=== PATIENT | female | born 1960 | race Caucasian/White ===

== ENCOUNTER 2024-02-26 10:41 | Emergency (ER) | payer BC, SELFPAY ==
[2024-02-26 10:44] VITALS: BP 142/86; PULSE 75; RESP 16; TEMP 37; O2SAT 96; BMI 44.1
--- NOTE | 2024-02-26 10:59 | ED.GENADULT ---
HPI - General Adult General Date Seen: 02/26/24 Chief complaint: Extremity Pain/Injury, Lower Stated complaint: Poss blood clot in left foot Time Seen by Provider: 02/26/24 10:58 History of Present Illness HPI narrative: Pleasant 63-year-old female with history of varicose veins (previous laser therapy, sclerotherapy) also some chronic lower extremity edema for which she wears compression stockings, who presents to the ER today with a 3-4 day history of atraumatic left ankle and foot pain. He she does do a lot of ambulation and is on her feet a lot at work (works at the local [employer]). She also went to the [employer] on Thursday, 4 days ago and a lot of walking there, but not as much as she normally would do at work in a given day. On Thursday she began to have pain in her left ankle. It is mostly on the medial side of the ankle and medial hindfoot but a little bit on the lateral side. No pain in her midfoot or forefoot. The pain radiates a little bit up the anterior lower leg just proximal to the ankle. No pain in the calf. She notes that she has prominent tiny spider veins that are a little bit more red than normal on the medial side of her foot. No bruising. No other redness or warmth. She has not had any fevers or chills. No pain in the calf, knees, thigh. No other new swelling in the leg. No chest pain. No trouble breathing. No history of gout. No history of septic arthritis. No diabetes or immunosuppression. Related Data Home Medications ?Medication ?Instructions ?Recorded ?Confirmed levothyroxine 125 mcg tablet 125 mcg PO DAILY 11/12/22 02/26/24 (Synthroid) torsemide 10 mg tablet 10 mg PO DAILY 11/12/22 02/26/24 valacyclovir 1 gram tablet 2,000 mg PO Q12H PRN 11/12/22 02/26/24 (Valtrex) Previous Rx's ?Medication ?Instructions ?Recorded ibuprofen 800 mg tablet 800 mg PO Q8H #20 tabs 02/26/24 Allergies Allergy/AdvReac Type Severity Reaction Status Date / Time latex Allergy skin Verified 02/26/24 10:51 breakout [facility] Medical History (Updated 02/26/24 @ 13:41 by Berhane Medina MD) Major depressive disorder ?F32.9 - Major depressive disorder, single episode, unspecified (ICD-10) Unspecified hypothyroidism ?E03.9 - Hypothyroidism, unspecified (ICD-10) Surgical History (Updated 11/12/22 @ 07:19 by Tala Suarez RN) Hx of vein stripping ?Z98.890 - Other specified postprocedural states (ICD-10) History of partial hysterectomy ?Z90.711 - Acquired absence of uterus with remaining cervical stump (ICD-10) Social History Smoking Status: Former smoker What tobacco products do you use: cigarettes Smoking quit date/years: >15 years ago Do you use any of these nicotine containing products: None How often do you have a drink containing alcohol: 2-4 times a month Alcohol type: wine How many standard drinks containing alcohol do you have on a typical day: 1 or 2 How often do you have six or more drinks on one occasion: Never AUDIT-C Alcohol total score: 2 Non-prescribed substance use: denies use Caffeine: Yes (3 cups coffee per day) Are you using contraception or practicing any form of control: No Exam Narrative: Exam Narrative: Constitutional: Appears well-developed and well-nourished. Alert. Conversant. Non toxic. HENT: Head: Atraumatic. Nose: Nose normal. Mouth/Throat: Oral mucosa is clear and moist. no trismus. Eyes: Conjunctivae normal. EOM normal. Pupils equal, round, and reactive to light. No scleral icterus. Neck: Normal range of motion. Neck supple. No tracheal deviation present. Cardiovascular: Normal rate, regular rhythm. No gallop. No friction rub. No murmur heard. Symmetric radial artery pulses Pulmonary/Chest: Effort normal. No stridor. No respiratory distress. No wheezes. No rales. No rhonchi . Musculoskeletal: RUE: Normal range of motion. No tenderness. No deformity LUE: Normal range of motion. No tenderness. No deformity RLE: Normal range of motion. Trace edema which the patient says is baseline for her. No tenderness. No deformity LLE: Normal range of motion in her hip, knee. She has full plantar flexion and dorsiflexion of the ankle but has pain in the left ankle with plan to her flexion and also with dorsiflexion beyond 90?.. Trace edema which is at baseline. She is mildly tender on the medial and the hindfoot and medial malleolus. There is a prominent slightly purplish red erythema there that appears to be a tiny little spider varicose veins. No ecchymosis. No confluent erythema. There is no warmth on the medial or lateral or anterior ankle. No bony crepitus. No palpable effusion. No swelling in the ankle. Lymph: No ascending lymphangitis Neurological: Alert and oriented to person, place, and time. Normal strength. CN II-VII intact. No sensory deficit. GCS eye subscore is 4. GCS verbal subscore is 5. GCS motor subscore is 6. Normal coordination Skin: Skin is warm and dry. No rash noted. No pallor. Normal capillary refill. Psychiatric: Normal mood. Normal affect. Const: Vital Signs, click to edit/add: Vital Signs - 24 hr 02/26/24 10:44 Temperature 98.6 F Pulse Rate [Pulse Oximeter] 75 Respiratory Rate 16 Blood Pressure [Ri ght Upper Arm] 142/86 H Pulse Oximetry 96 Oxygen Delivery Me thod Room Air Course Vital Signs Vital signs: Initial Vital Signs Temperature 98.6 F 02/26/24 10:44 Temperature Source Temporal Artery Scan 02/26/24 10:44 Pulse Rate 75 02/26/24 10:44 Respiratory Rate 16 02/26/24 10:44 Blood Pressure 142/86 H 02/26/24 10:44 Blood Pressure Mean 104 02/26/24 10:44 Blood Pressure Position Sitting 02/26/24 10:44 Pulse Oximetry 96 02/26/24 10:44 Oxygen Delivery Method Room Air 02/26/24 10:44 Vital Signs Temperature 98.6 F 02/26/24 10:44 Pulse Rate 75 02/26/24 10:44 Respiratory Rate 16 02/26/24 10:44 Blood Pressure 142/86 H 02/26/24 10:44 Pulse Oximetry 96 02/26/24 10:44 Oxygen Delivery Method Room Air 02/26/24 10:44 Temperature 98.6 F 02/26/24 10:44 Pulse Rate 75 02/26/24 10:44 Respiratory Rate 16 02/26/24 10:44 Blood Pressure 142/86 H 02/26/24 10:44 Pulse Oximetry 96 02/26/24 10:44 Oxygen Delivery Method Room Air 02/26/24 10:44 Medical Decision Making MDM Narrative Medical decision making narrative: Pleasant 63-year-old female presenting to the ER today with 3-4 day history of atraumatic pain and a little bit of swelling involving her left ankle and the medial aspect of her hindfoot. She has a history of varicose veins and is concerned about possible blood clots. She does not really have any swelling or edema in her calf. No palpable cords. No swelling or symptoms affecting her proximal leg. Clinical pretest likelihood for DVT is low but not 0. Ultrasound of her leg is obtained is negative for DVT. She does have intact distal pulses and no signs of acute limb ischemia. With the subtle erythema , consider possible early or mild cellulitis however there is no warmth, no fever. Erythema really is just exaggeration of tiny capillary varicosities on the skin. X-rays are obtained and are negative for any acute fracture but do show evidence for tibiotalar arthritis which could be flaring. Likelihood for intra-articular pathology such as gout or septic arthritis is very low and in discussion with the patient I think it is reasonable to hold off on attempted arthrocentesis right now Will make the patient nonweightbearing on crutches, recommend anti-inflammatories (ibuprofen 800 t.i.d.). Take ibuprofen with food to avoid GI upset. Follow-up on Thursday with Ortho Clinic or PCP for recheck and was completely improved. Return to the ER right away if worsening redness or swelling, worsening pain, fever, or if any other concerns. patient is agreeable to the plan of care for watchful waiting for now Imaging Data XR left ankle: Attestation: I have reviewed the pertinent imaging results. Radiologist's impression: Impression: No acute osseous abnormality identified. Mild tibiotalar osteoarthritis. US left leg: Attestation: I have reviewed the pertinent imaging results. Radiologist's impression: IMPRESSION: Normal left lower extremity venous ultrasound, no sign of deep venous thrombosis. Discharge Plan Discharge Clinical Impression: Acute left ankle pain Patient Disposition: Home, Self-Care Condition: Stable Instructions: Arthralgia (ED) Additional Instructions: As we discussed so for your workup looks reassuring. No sign of blood clots. Your ankle x-ray shows nothing broken but does show a little bit of arthritis in your ankle joint. I suspect that your pain and redness and swelling or probably due to irritation of your ankle joint. For now we can treat this by rest, keeping weight off the ankle in using crutches when you are walking around. Use the nonsteroidal anti-inflammatory 3 times daily to help reduce pain and swelling. If you are not completely improved by Thursday, please follow-up with the [facility] (or with your regular doctor) for a recheck. To make an ER follow-up appointment with the Orthopedic Clinic call [phone]. If you have any worsening symptoms over the weekend such as worsening pain, increasing swelling, redness or fever, please come back to the ER right away to be rechecked. Prescriptions: New ibuprofen 800 mg tablet 800 mg PO Q8H Qty: 20 0RF No Action levothyroxine [Synthroid] 125 mcg tablet 125 mcg PO DAILY torsemide 10 mg tablet 10 mg PO DAILY valacyclovir [Valtrex] 1 gram tablet 2,000 mg PO Q12H PRN Rx Instructions: for 2 doses for cold sores Follow Up/Referrals: Mirella Jean MD [Primary Care Provider] - Stand Alone Forms: [employer] Info Instructions
--- NOTE | 2024-02-26 11:16 | CRLHL7_ITS ---
For Patients: As a result of the Century Cures Act, medical imaging exams and procedure reports are released immediately into your electronic medical record. You may view this report before your referring provider. If you have questions, please contact your health care provider. INDICATION: Atraumatic left ankle and foot pain. TECHNIQUE: Ultrasound venous duplex lower left extremity. Compression venous exam was performed using duncan-scale, color Doppler, and spectral Doppler analysis. COMPARISON: None available. FINDINGS: Deep veins: Sonographic imaging demonstrates the left common femoral, deep femoral, superficial femoral, popliteal, posterior tibial, peroneal and the contralateral right common femoral veins to be fully compressible with normal color Doppler blood flow. Superficial veins: Visualized portions of the greater saphenous vein are fully compressible. IMPRESSION: Normal left lower extremity venous ultrasound, no sign of deep venous thrombosis. Dictated by Kay Bustamante MD @ 02/26/2024 12:40:41 PM (Electronically Signed)
--- NOTE | 2024-02-26 11:16 | CRLHL7_ITS ---
For Patients: As a result of the Century Cures Act, medical imaging exams and procedure reports are released immediately into your electronic medical record. You may view this report before your referring provider. If you have questions, please contact your health care provider. Indication: Atraumatic ankle pain. Technique: Three view(s) of the left ankle. Comparison: None available. Findings: Alignment is anatomic. No acute fracture is identified. Mild tibiotalar marginal osteophytes. Posterior and plantar calcaneal enthesophytes. Generalized soft tissue swelling. Impression: No acute osseous abnormality identified. Mild tibiotalar osteoarthritis. Dictated by Kay Bustamante MD @ 02/26/2024 11:51:01 AM (Electronically Signed)
--- OUTSIDE RECORDS SUMMARY | 2024-02-26 11:37 | XMS_ITS | Clinical Summary ---
Author Organization [facility] Address [employer], [place] [address] Care Team Providers Care Harness Worker Name Role Phone Mirella Jean MD Primary Care Provide r Allergies No known active allergies Medications Medication Sig Dispensed Refills Start Date End Date Status Graduated Compression StockingsIndicatio ns:Bilateral leg edema For personal use. Length: calf Strength: 16-20 mmHg Circumference in cm: measure at pharmacy 1 Packet 06/06/2022 Active Graduated Compression StockingsIndicatio ns:Varicose veins of both lower extremities, unspecified whether complicated For personal use. Length: calf Strength: 20-30 mmHg 2 Packet 1 07/22/2022 Active valACYclovir (VALTREX) 1 gram tabletIndications: Recurrent cold sores TAKE 2 TABLETS(2 GRAMS) BY MOUTH EVERY 12 HOURS FOR 2 DOSES FOR COLD SORES 20 Tablet 2 01/26/2024 Active levothyroxine (SYNTHROID) 125 mcg tabletIndications: Hypothyroidism (acquired) Take 1 Tablet (125 mcg) by mouth before breakfast. 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 Unspecified hypothyroidism 11/27/2006 Encounters Date Type Department Care Team Description 02/26/2024 Nurse Triage [facility] [address] [place] [address] Mirella Jean MD Ankle Pain/problem 02/15/2024 Telephone [facility] [address] [place] [address] Mirella Jean MD Abnormal Lab Results 02/03/2024 Orders Only [facility] Scanner 1 scan: (1-Ord) [facility], THERAPEUTIC LEFT L5-S1, L4-5 AND L3-4 FACET JOINT INJECTIONS, 02/03/2024 01/26/2024 3:05 PM CDT Office Visit [facility] [address] [place] [address] Mirella Jean MD Physical (63 yo Female/Not sleeping well, losing hair and weight gain Thyroid messed up ?/Would like something for sleep/Retaining fluid in legs) 01/26/2024 Travel 01/11/2024 Telephone [facility] [address] [place] [address] Mirella Jean MD ACC Order Request (MRI or XRay) 12/22/2023 Telephone [facility] [address] [place] [address] Mirella Jean MD Referral (spinal injection) 12/19/2023 Refill [facility] [address] [place] [address] Mirella Jean MD Refill Request (Levothyroxine) from Last 3 Months Immunizations Name Administration Dates Next Due COVID-19 vaccine (NitroPCR 30mcg/0.3mL) [place] 10/01/2020,09/04/2020 Hepatitis A (Adult) 07/18/2005, 5,11/03/2003,2002 Human Papilloma Virus Vaccine 01/21/2007, 007,07/22/2006 Influenza A (H1N1), Inactivated 07/11/2009 Influenza, IIV3 (Age 6-35 mos) 04/01/2010 Influenza, IIV4 04/09/2016,04/13/2014 Td (Age >=7 Years) 02/17/2006,04/29/1996 Tdap 03/06/2016 Zoster (Shingrix-RZV, recombinant) 01/26/2024 Family History Medical History Relation Name Comments Heart Disease Father valve replacem ent Diabetes Maternal Uncle Heart Disease Mother Hypertension Mother Diabetes Paternal Uncle Cancer-breast No Family History Relation Name Status Comments Father Maternal Uncle Mother Paternal Uncle Social History Tobacco Use Types Packs/Day Years Used Date Smoking Tobacco: Former Cigarettes Q uit: 06/29/1994 Smokeless Tobacco: Never Tobacco Cessation:Counseling Given: Yes Alcohol Use Standard Drinks/Week Comments Yes 1 (1 standard drink = 0.6 oz pur e alcohol) PHQ-2 Answer Date Recorded PHQ-2 TOTAL SCORE 0 01/26/2024 Social Connections Answer Date Recorded Frequency of Communication with Friends and Fami ly 0 01/26/2024 Financial Resource Strain Answer Date R ecorded Difficulty of Paying Living Expenses 3 01/26/2024 Difficulty of Paying Living Expenses Not on file 01/26/2024 Food Insecurity Answer Date Recorded Worried About Running Out of Food in the Last Ye ar 1 01/26/2024 Transportation Needs Answer Date Record ed Lack of Transportation (Medical) 1 01/26/2024 Housing Stability Answer Date Recorded Unable to Pay for Housing in the Last Year 1 01/26/2024 Sex and Gender Information Value Date Recorded Sex Assigned at Not on file Gender Identity Not on file Sexual Orientation Not on file Obstetrics History Last Filed Vital Signs Vital Sign Reading Time Taken Comments Blood Pressure 118/81 01/26/2024 3:29 PM CDT Pulse 85 01/26/2024 3:29 PM CDT Temperature 36.9 ??C (98.4 ??F) 12/08/2022 8:39 AM CD T Respiratory Rate - - Oxygen Saturation 97% 01/26/2024 3:29 PM CDT Inhaled Oxygen Concentration - - Weight 123.2 kg (271 lb 9.6 oz) 01/26/2024 3:29 PM CDT Height 162.6 cm (5' 4) 01/26/2024 3:29 PM CDT Body Mass Index 46.62 01/26/2024 3:29 PM CDT Plan of Treatment Upcoming Encounters Date Type Department Care Team (Late st Contact Info) Description 03/22/2024 8:00 AM CDT Orders Only [facility] [address] [place] [address] Lab, [place] Maintenance Due Date Last Done Comments HIV for age 15-65 10/11[birth year]1974 COVID-19 vaccine series (3 - 2022- season) 2023 10/01/2020, 09/04/2020 Influenza for age 50-64 02/28/2024 04/09/20 16, 04/13/2014, 07/11/2009 Zoster (shingles) series for age 50+ (2 of 2) 03/22/2024 01/26/2024 Mammogram for age 45-75 10/08/2024 10/09/19, 09/30/2022, 09/16/2022, Additional history exists BMI (ht and wt on same day) for age 18+ 01/25/2025 01/26/2024, 09/16/2022, 08/20/2021, Additional history exists Depression screening for age 12+ 01/25/2025 01/26/2024, 09/16/2022, 09/16/2022, Additional history exists Fecal testing sDNA-FIT (Cologuard) for age 45-75 10/07/2025 10/07/2022 Tetanus booster 03/06/2026 03/06/2016, 01/28, 04/29/1996 Lipids for age 45-75 01/25/2029 01/26/2024, 09/16/2022, 08/20/2021, Additional history exists Tdap Completed 03/06/2016 Fecal testing non-DNA (FIT,FOBT,iFOBT) for age 45-75 Discontinued 03/31/2018 Hepatitis C screening for age 18-79 Completed 05/08/2020 Pneumococcal series for age 6-64 Aged Out No longer eligible based on patient's age to complete this topic Procedures Procedure Name Priority Date/Time Associated Diagnosis Comments SCAN-OPERATIVE/PROC EDURE REPORT 02/03/2024 12:00 AM CDT LIPID PANEL Routine 01/26/2024 4:58 PM CDT Lipid screening TSH WITH REFLEX Routine 01/26/2024 4:58 PM CDT Hypothyroidism (acquired) BASIC METABOLIC PANEL Routine 01/26/2024 4:58 PM CDT Edema, peripheral XR MAMMO TREY BILAT SCREEN Routine 10/09/2023 4:21 PM CDT Visit for screening mammogram SDNA-FIT EXTERNAL (COLOGUARD) Routine 10/07/2022 5:30 AM CDT Screening for colon cancer ANTI HCV Routine 05/08/2020 11:15 AM [facility] Need for hepatitis C screening test OCCULT BLOOD IFOBT STOOL Routine 03/31/2018 12:30 PM CDT Screening for colon cancer from Last 3 Months or Most Recently Relevant to Health Maintenance Results * SCAN-OPERATIVE/PROCEDURE REPORT (02/03/2024 12:00 AM CDT) Scanner OTHER * TSH WITH REFLEX (01/26/2024 4:58 PM CDT) TSH 1.56 0.27 - 4.20 uIU/mL 01/27/2024 2:44 PM CDT [facility] Blood BLOOD SPECIMEN / Unknown Butterfly / Unknown 01/26/2024 4:58 PM CDT 01/26/2024 4:59 PM CDT Narrative [facility] - 01/27/2024 2:44 PM CDT In Adults, TSH values between 5.00 and 10.00 uIU/ml do not necessarily indicate the presence of Hypothyroidism. Correlation with clinical findings such as presence of goiter and/or Thyroperoxidase (TPO) Antibody may be helpful. For more information please refer to SAMEER 2004; 291: 228-238. Mirella Jean MD CHEMISTRY [facility] [address] [place] [address], * (ABNORMAL) LIPID PANEL (01/26/2024 4:58 PM CDT) CHOLESTEROL,TOTAL 288(H) 100 - 199 mg/dL 01/27/2024 2:44 PM CDT [facility] Comment: Cholesterol, Total Reference Ranges Desirable <200 mg/dL Borderline 200-239 mg/dL High >=240 mg/dL TRIGLYCERIDES 273(H) <150 mg/dL 01/27/2024 2:44 PM CDT [facility] HDL CHOLESTEROL 69 >40 mg/dL 2:44 PM CDT [facility] NON-HDL CHOLESTEROL 219(H) <145 mg/dl 01/27/2024 2:44 PM CDT [facility] CHOL/HDL RATIO 4.17 <4.50 01/27/2024 2:44 PM CDT [facility] LDL CHOLESTEROL 164(H) <=130 mg/dL 01/27/2024 2:44 PM CDT [facility] VLDL CHOLESTEROL 55(H) <=30 mg/dL 01/27/2024 2:44 PM CDT [facility] PROVIDER ORDERED STATUS RANDOM 01/27/2024 2:44 PM CDT [facility] Blood BLOOD SPECIMEN / Unknown Butterfly / Unknown 01/26/2024 4:58 PM CDT 01/26/2024 4:59 PM CDT Mirella Jean MD CHEMISTRY [facility] [address] [place] [address], * (ABNORMAL) BASIC METABOLIC PANEL (01/26/2024 4:58 PM CDT) SODIUM 138 136 - 145 mmol/L 01/27/2024 2:44 PM CDT [facility] POTASSIUM 3.8 3.5 - 5.1 mmol/L 01/27/2024 2:44 PM CDT [facility] CHLORIDE 100 98 - 107 mmol/L 01/27/2024 2:44 PM CDT [facility] CO2,TOTAL 25 22 - 29 mmol/L 01/27/2024 2:44 PM CDT [facility] ANION GAP 13 5 - 18 01/27/2024 2:44 PM CDT [facility] GLUCOSE 96 70 - 99 mg/dL 01/27/2024 2:44 PM CDT [facility] CALCIUM 9.6 8.8 - 10.2 mg/dL 01/27/2024 2:44 PM CDT [facility] BUN 23 8 - 23 mg/dL 01/27/2024 2:44 PM CDT [facility] CREATININE 1.21(H) 0.50 - 0.90 mg/dL 01/27/2024 2:44 PM CDT [facility] BUN/CREAT RATIO 19 10 - 20 2:44 PM CDT [facility] eGFR 50(L) >90 mL/min/1.7 3m2 01/27/2024 2:44 PM CDT [facility] Comment:As of 2021, eG FR is calculated by the CKD-EPI creatinine equation without race adjustment. ??eGFR can be influenced by muscle mass, exercise, and diet. ??The reported eGFR is an estimation only and is only applicable if the renal function is stable. Blood BLOOD SPECIMEN / Unknown Butterfly / Unknown 01/26/2024 4:58 PM CDT 01/26/2024 4:59 PM CDT Mirella Jean MD CHEMISTRY [facility] [address] [place] [address], * XR MAMMO TREY BILAT SCREEN (10/09/2023 4:21 PM CDT) Anatomical Region Laterality Modality BREASTS, Breast Left, Breast Right Bilateral Mammography Impressions 2023 1:19 PM CDT ??There is no radiographic evidence for malignancy. ??Recommend annual mammograms. MAMMOGRAM ASSESSMENT: ??ACR 2 Benign PATIENTS: You will also receive a letter with your examination results in an easy to read format. ??If you have questions about your results, please contact your referring provider. Narrative 2023 1:19 PM CDT For Patients: As a result of the Century Cures Act, medical imaging exams and procedure reports are released immediately into your electronic medical record. You may view this report before your referring provider. If you have questions, please contact your health care provider. XR MAMMO TREY BILAT SCREEN [[id number]] CLINICAL HISTORY: ??This is an asymptomatic 63 y.o. patient. INDICATION FOR EXAM: Mammogram Screening. TECHNIQUE: CC & MLO views were obtained. ??This study was evaluated with the assistance of Computer-Aided Detection. Breast Tomosynthesis was used in interpretation. COMPARISON FILMS: Yes 09/16/22 [facility] 08/20/21 [facility] FINDINGS: ??The breasts have scattered areas of fibroglandular density. ??No suspicious masses or microcalcifications. ??There are benign appearing mass(es). Mirella Jean MD MAMMO * SDNA-FIT EXTERNAL (COLOGUARD) (10/07/2022 5:30 AM CDT) NONINV COLON CA DNA+OCC BLD SCRN STL-IMP Negative Negative 10/14/2022 9:25 AM CDT [facility] (CLIA #:[id number]) Comment: NEGATIVE TEST RESULT. A negative Cologuard result indicates a low likelihood that a colorectal cancer (CRC) or advanced adenoma (adenomatous polyps with more advanced pre-malignant features) ??is present. The chance that a person with a negative Cologuard test has a colorectal cancer is less than 1 in 1500 (negative predictive value >99.9%) or has an ??advanced adenoma is less than ??5.3% (negative predictive value 94.7%). These data are based on a prospective cross-sectional study of 10,000 individuals at average risk for colorectal cancer who were screened with both Cologuard and colonoscopy. (Salvatore Carson, N Engl J Med 2014;370(14):1286- 1297) The normal value (reference range) for this assay is negative. COLOGUARD RE-SCREENING RECOMMENDATION: Periodic colorectal cancer screening is an important part of preventive healthcare for asymptomatic individuals at average risk for colorectal cancer. ??Following a negative Cologuard result, the [place] Cancer Society and U.S. Multi-Society Task Force screening guidelines recommend a Cologuard re-screening interval of 3 years. References: [place] [employer] Society Guideline for Colorectal Cancer Screening: https://www.cancer.org/cancer/vzkro-ydjluk-qgoepl/vnseddvfl-zgcumugkn-pweeilc/ac s-rec ommendations.html.; Jim DK, Comfort PHELPS, Naomi RushK, Colorectal Cancer Screening: Recommendations for Physicians and Patients from the U.S. Multi-Society Task Force on Colorectal Cancer Screening , Am J Gastroenterology 2017; 112:6308-6796. TEST DESCRIPTION: Composite algorithmic analysis of stool DNA-biomarkers with hemoglobin immunoassay. ?? Quantitative values of individual biomarkers are not reportable and are not associated with individual biomarker result reference ranges. Cologuard is intended for colorectal cancer screening of adults of either sex, 45 years or older, who are at average-risk for colorectal cancer (CRC). Cologuard has been approved for use by the U.S. FDA. The performance of Cologuard was established in a cross sectional study of average-risk adults aged 50-84. Cologuard performance in patients ages 45 to 49 years was estimated by sub-group analysis of near-age groups. Colonoscopies performed for a positive result may find as the most clinically significant lesion: colorectal cancer [4.0%], advanced adenoma (including sessile serrated polyps greater than or equal to 1cm diameter) [20%] or non- advanced adenoma [31%]; or no colorectal neoplasia [45%]. These estimates are derived from a prospective cross-sectional screening study of 10,000 individuals at average risk for colorectal cancer who were screened with both Cologuard and colonoscopy. (Salvatore Carson, N Engl J Med 2014;370(14):5582-3334.) Cologuard may produce a false negative or false positive result (no colorectal cancer or precancerous polyp present at colonoscopy follow up). A negative Cologuard test result does not guarantee the absence of CRC or advanced adenoma (pre-cancer). The current Cologuard screening interval is every 3 years. ([place] [employer] and U.S. Multi-Society Task Force). Cologuard performance data in a 10,000 patient pivotal study using colonoscopy as the reference method can be accessed at the following location: www.[employer]/results. Additional description of the Cologuard test process, warnings and precautions can be found at www.cologuard.com. Stool specimen (specimen) ([facility]) 10/07/2022 5:30 AM CDT 10/08/2022 2:52 PM CDT Mirella Jean MD URINE [facility] (CLIA #:[id number]) [place] [address], * ANTI HCV (05/08/2020 11:15 AM [facility]) HEPATITIS C ANTIBODY Non-React yasmin Non-React yasmin 05/08/2020 4:58 PM [facility] Comment:Antibodies to HCV no t detected; does not exclude the possibility of exposure to HCV. Blood BLOOD SPECIMEN / Unknown Venipuncture / Unknown 05/08/2020 11:15 AM [facility] 05/08/2020 11:18 AM [facility] Mirella Jean MD [facility] [address] [place] [address], [place] * OCCULT BLOOD IFOBT STOOL (03/31/2018 12:30 PM CDT) STOOL BLOOD ,IFOBT Negative Negative 03/31/2018 1:44 PM CDT [facility] Stool STOOL SPECIMEN / Unknown Non-Blood / Unknown 03/31/2018 12:30 PM CDT 03/31/2018 1:36 PM CDT Mirella Jean MD LABORATORY [facility] [address] [place] [address], from Last 3 Months or Most Recently Relevant to Health Maintenance Care Teams Harness Worker Relationship Specialty Start Date End Date Mirella Jean MD [address] [place] [address] PCP - General 10/31/05
== END 2024-02-26 14:03 | disposition home or self-care (01) ==
PROVIDERS: Emergency Provider Emergency Medicine; PCP Family Medicine
DX: M25.572 Pain in left ankle and joints of left foot (principal)
CPT/HCPCS: 73610; 93971; 99282; 99284